=== PATIENT | male | born 1970 | race African-American/Black ===

== ENCOUNTER 2018-06-20 17:19 | Emergency (ER) | payer BC ==
[~2018-06-20] VITALS: Ht 177.8 cm; Wt 90.7 kg
[2018-06-20] MEDS ORDERED: DEXAMETHASONE 4 MG TABLET PO ONE (18:30)
[2018-06-20] MEDS ORDERED: IBUPROFEN 600 MG TABLET. PO ONE (18:30)
--- NOTE | 2018-06-20 18:30 | PHYS DOC ---
Past History Past Medical History: No Pertinent History Past Surgical History: No Surgical History Smoking: Cigarettes (20 pack year history smoking cigarettes. Has been vaping for the last 4 years.) Alcohol Use: Rarely Drug Use: None Adult General Chief Complaint Chief Complaint: FLU SYMPTOM HPI HPI The patient is a 47-year-old male who presents to the emergency department this evening with complaints of flu-like symptoms. He denies history of having these symptoms. His is accompanying him in the exam room with similar symptoms. Symptoms including body aches, chills, cough, fever, headache, and runny nose started this morning and he has been feeling progressively worse throughout the day. Admits having close contacts - son was diagnosed with the flu two days ago and has been having similar symptoms. Patient denies having a flu vaccine this year. He has tried [id number] cough medicine with no relief. Review of Systems Review of Systems Constitutional: Admits fever and chills. Eyes: Denies change in visual acuity or eye pain. Admits redness. HENT: Admits sore throat and runny nose. Denies hemoptysis. Respiratory: Denies shortness of breath. Admits cough. Cardiovascular: Admits mild chest pain. Denies palpitations. GI: Denies abdominal pain, vomiting, bloody stools. Admits nausea. Integument: Denies rash or skin lesions. Neurologic: Admits headache. Denies focal weakness or sensory changes. Complete systems were reviewed and found to be within normal limits, except as documented in this note. Current Medications Current Medications Current Medications Medications (Trade) Dose Ordered Sig/Zoila Start Time Stop Time Status Last Admin Dose Admin Dexamethasone (Decadron) 10 mg 1X ONCE 06/20/18 18:30 06/20/18 18:31 UNV Ibuprofen (Motrin) 600 mg 1X ONCE 06/20/18 18:30 06/20/18 18:31 UNV Allergies Allergies Allergies Coded Allergies Type Severity Reaction Last Updated Verified No Known Drug Allergies 06/20/18 No Physical Exam Physical Exam Constitutional: Well developed, well nourished, laying down, appears uncomfortable. HENT: Normocephalic, atraumatic, oropharynx moist, no oral exudates, nose normal. Erythematous R TM. Eyes: PERRL, EOMI, conjunctiva red with clear discharge. Neck: Normal range of motion, no tenderness, supple, no meningeal signs Cardiovascular: Heart rate regular rhythm, no murmur. Lungs & Thorax: Bilateral breath sounds clear to auscultation. Abdomen: soft, no tenderness Skin: Warm, dry, no erythema, no rash. Back: No tenderness. Extremities: No tenderness, ROM intact, no edema. Neurologic: Alert and oriented X 3, normal motor function, normal sensory function, no focal deficits noted. Psychologic: Affect normal, judgement normal, mood normal. EKG EKG [] Radiology/Procedures Radiology/Procedures PROCEDURE: CHEST PA & LATERAL EXAM: PA and Lateral Views of the Chest DATE: 06/20/2018 6:42 PM INDICATION: COUGH, FLU COMPARISON: No Prior FINDINGS: The heart is not enlarged. Mediastinal and hilar contours are normal. No focal parenchymal airspace opacity. No pleural effusion or pneumothorax. IMPRESSION: 1. No radiographic evidence for acute cardiopulmonary process. Electronically signed by: Rogelio Martin MD (06/21/2018 12:07 AM) [facility] Course & Med Decision Making Course & Med Decision Making Pertinent Labs and Imaging studies reviewed. (See chart for details) Patient presents with history of present illness and physical exam concerning for influenza. History of positive sick contact at home. Rapid influenza negative. Chest x-ray stable. Symptomatic treatment provided. Given close quarters with sick contact we'll empirically treat patient with Tamiflu. Prescription provided. Patient stable for discharge with outpatient follow-up with PCP. Discussed findings and plan with patient and family, who acknowledge understanding and agreement. Dragon Disclaimer Dragon Disclaimer This electronic medical record was generated, in whole or in part, using a voice recognition dictation system. Departure Departure: Impression: Primary Impression: Flu-like symptoms Disposition: HOME, SELF-CARE Condition: STABLE Referrals: PCP,NO (PCP) Patient Instructions: Viral Syndrome Scripts Oseltamivir Phosphate (TAMIFLU) 75 Mg Capsule 1 CAP PO BID for influenza, #10 CAP Prov: DANIEL CALI DO 06/20/18 Prednisone (PREDNISONE) 20 Mg Tablet 2 TAB PO DAILY for Bronchitis, #8 TAB Prov: DANIEL CALI DO 06/20/18 DANIEL CALI DO Jun 20, 2018 18:30
[2018-06-20 18:42] LABS: INFLUENZA A PATIENT NEGATIVE (NEGATIVE); INFLUENZA B PATIENT NEGATIVE (NEGATIVE)
[2018-06-20] MEDS ORDERED: PRED20TA PO (19:32)
[2018-06-20] MEDS ORDERED: OSEL75CA PO (19:32)
[2018-06-20 19:43] VITALS: BP 142/100
--- NOTE | 2018-06-21 00:10 | RAD ---
EXAM: PA and Lateral Views of the Chest DATE: 06/20/2018 6:42 PM INDICATION: COUGH, FLU COMPARISON: No Prior FINDINGS: The heart is not enlarged. Mediastinal and hilar contours are normal. No focal parenchymal airspace opacity. No pleural effusion or pneumothorax. IMPRESSION: 1. No radiographic evidence for acute cardiopulmonary process. Electronically signed by: Rogelio Martin MD (06/21/2018 12:07 AM) [facility]
== END 2018-06-20 19:43 | disposition home or self-care (01) ==
LOC: ER 17:19
DX: M79.10 Myalgia, unspecified site (principal); R05 Cough; R50.9 Fever, unspecified; R51 Headache; R09.89 Other specified symptoms and signs involving the circulatory and respiratory systems; F17.210 Nicotine dependence, cigarettes, uncomplicated
CPT/HCPCS: 71046; 87804; 99284; J8540